=== PATIENT | female | born 1950 | race Caucasian/White ===

== ENCOUNTER → 2016-05-02 | Outpatient (CLI) | payer OTHER ==
[~2016-05-02] VITALS: Ht 175.3 cm; Wt 77.1 kg
[~2016-05-02] MED LIST: ACET500T33 PO; HYDR-2666 PO; PANT40TA5 PO; RANI150C PO; VALS160T3 PO
[2016-05-02 13:17] VITALS: BP 144/87
--- NOTE | 2016-05-04 10:17 | PATHOLOGY ---
PATHOLOGY REPORT * * * * * * * * FINAL DIAGNOSIS: Breast tissue, right breast core biopsy: - INVASIVE DUCTAL CARCINOMA, INTERMEDIATE TO HIGH-GRADE. SEE COMMENT. COMMENT: Sections of the right breast mass core biopsy reveal an invasive ductal carcinoma with associated dense stromal sclerosis. A portion of the tumor shows crush artifact of nuclei. The tumor shows little to no tubule formation, moderate nuclear pleomorphism, and occasional mitotic figures. There are no tumor associated calcifications. There is no lymphovascular tumor invasion. The case is also examined by Dr. Oviedo, who concurs with the diagnosis. (JPM:mgr; d/t: 05/03/16) PROCEDURE REPORT (Order Date: 05/05/2016 00:00) INTERPRETATION: Quantitative image analysis was performed on block A1. Please see next page for scanned image of results. COMMENT: PATHOLOGIST: Irene Oviedo M.D. REPORT ELECTRONICALLY SIGNED BY: Irene Oviedo M.D. DATE/TIME: 05/09/2016 15:35 REPORT ELECTRONICALLY SIGNED BY: Geoff Clark M.D. DATE/TIME: 05/04/2016 10:16 * * * * * * * * GROSS PATHOLOGY: Received in formalin labeled "Tamy Chang right breast," are multiple needle cores of yellow-vera fibrofatty tissue measuring 1.2 x 0.3 x 0.1 cm in aggregate dimensions. The tissue is submitted in its entirety in cassette A1. The cold ischemic time is 5 minutes. The total formalin fixation time is 8 hours and 6 minutes. (CAA; 05/02/2016) INITIAL CPT CODE(S): A; 34246, 09759(4) Professional services performed by [facility] at [address] [address] Technical services performed by [email or web address] at [address] [place] [address] [address] [address]. SPECIMEN(S) RECEIVED: A.Right breast mass CLINICAL HISTORY: Right breast mass PATIENT: TAMY CHANG /AGE: 1203/01/1950 (Age: 66) PATIENT #: [id number] ALT CASE #: SPECIMEN COLLECTION DATE: 05/02/2016 SPECIMEN RECEIVED DATE: 05/02/2016 [facility] - [id number] [address] - PHONE: [phone] * * * END OF REPORT * * *
--- NOTE | 2016-05-13 10:05 | RAD ---
Ultrasound-guided vacuum-assisted right breast biopsy, 05/02/2016: History: Breast mass Previous studies demonstrated an ill-defined hypoechoic mass at the 5-6:00 location. Under local anesthesia, aseptic conditions and sonographic guidance the NewGoTos biopsy instrument was passed into this lesion via a medial approach. Multiple vacuum-assisted core samples were obtained and sent to pathology for evaluation. The number of cores was unexpectedly small, apparently due to the extreme density of this lesion. A biopsy marker was deposited at the biopsy site. The biopsy instrument was then removed and hemostasis obtained. Two-view postprocedural mammograms were then obtained which demonstrated the biopsy marker within the targeted mass. The patient tolerated the procedure well and left the department in good condition. The subsequent pathology report indicated the presence of invasive ductal carcinoma. Note: The findings were called to Dr. Worthy's office at 10:00 AM on 05/13/2016.
== END | disposition home or self-care (01) ==
LOC: US 12:14
PROVIDERS: ATTEND Surgery
DX: N63 Unspecified lump in breast (principal)
CPT/HCPCS: 19081; 76942; C1713; G0206; 88305; 88361; 77065

== ENCOUNTER 2016-05-16 08:11 | Inpatient (IN) | payer OTHER ==
[2016-05-16] VITALS (10 sets, daily range): BP systolic 129–155; BP diastolic 66–85
[~2016-05-16] VITALS: Ht 175.3 cm; Wt 80.7 kg
[~2016-05-16 08:11] MED LIST changes: +FENTANYL PF 100 MCG/2 ML VIAL. IV PRN; -HYDR-2666 PO; +HYDROMORPHONE 2 MG/ML VIAL. IV PRN; +LIDOCAINE 1% 1 ML SYRINGE. ID PRN; +ONDANSETRON PF 4 MG/2 ML VIAL. IV PRN; +PROCHLORPERAZINE 10 MG/2 ML VIAL. IV PRN
[2016-05-16] MEDS ORDERED: MIDAZOLAM HCL 2 MG/2 ML VIAL. ONE (08:45)
[2016-05-16] MEDS ORDERED: LIDOCAINE 2% 100 MG/5 ML DISP.SYRIN. ONE (08:45)
[2016-05-16] MEDS ORDERED: ONDANSETRON PF 4 MG/2 ML VIAL. ONE (08:45)
[2016-05-16] MEDS ORDERED: DEXAMETHASONE SOD PHOS 20 MG/5 ML VIAL. ONE (08:45)
[2016-05-16] MEDS ORDERED: FENTANYL PF 100 MCG/2 ML VIAL. ONE ×2 (08:45→11:22)
[2016-05-16] MEDS ORDERED: PROPOFOL 20 ML IV ONE (08:45)
[2016-05-16] MEDS ORDERED: LIDOCAINE 1% / SOD BICARB 8.4% 20 ML VIAL. IJ ONE (09:00)
[2016-05-16] MEDS: IV RINGERS,LACTATED 1000ML 1,000 ML IV SCH ×2 (09:05→12:41)
[2016-05-16 09:14] LABS: ALBUMIN 3.6 g/dL (3.4-5.0); CALCIUM 9.1 mg/dL (8.5-10.1); CREATININE 0.9 mg/dL (0.6-1.0); GFR 62.8; POTASSIUM 3.9 mmol/L (3.5-5.1)
[2016-05-16 09:27] LABS: BASO # 0.1 x10^3/uL (0.0-0.2); BASO % 1 % (0-3); EOS % 3 % (0-3); HEMATOCRIT 40.4 % (36.0-47.0); HEMOGLOBIN 13.4 g/dL (12.0-15.5); LYMPH # 1.7 x10^3/uL (1.0-4.8); LYMPH % 13 % (24-48); MEAN CORPUSCULAR HEMOGLOBIN 28 pg (25-35); MEAN CORPUSCULAR HGB CONC 33 g/dL (31-37); MEAN CORPUSCULAR VOLUME 84 fL (79-100); MONO % 5 % (0-9); NEUT % 79 % (31-73); PLATELET COUNT 437 x10^3/uL (140-400); RED BLOOD COUNT 4.81 x10^6/uL (3.50-5.40); RED CELL DISTRIBUTION WIDTH 14.9 % (11.5-14.5); WHITE BLOOD COUNT 13.5 x10^3/uL (4.0-11.0)
[2016-05-16] MEDS ORDERED: CEFAZOLIN 2GM PREMIX 50 ML IV ONE ×3 (09:36→11:00)
[2016-05-16] MEDS ORDERED: ISOSULFAN BLUE 50 MG/5 ML VIAL. SQ ONE (10:32)
[2016-05-16] MEDS ORDERED: BUPIVAC MPF-EPI 0.5%-1:200000 30 ML VIAL. ONE (10:32)
[2016-05-16] MEDS ORDERED: PHENYLEPHRINE in 0.9% NACL PF 1 MG/10 ML DISP.SYRIN. IV ONE (11:20)
[2016-05-16] MEDS ORDERED: SEVOFLURANE 61 TO 120 MINUTES. IH ONE ×2 (11:20→12:05)
[2016-05-16] MEDS ORDERED: EPHEDRINE PF IN SALINE 50 MG/5 ML DISP.SYRIN. IV ONE (11:43)
[2016-05-16] MEDS ORDERED: KETOROLAC 60 MG/2 ML SYRINGE FOR OR. ONE (12:06)
[2016-05-16] MEDS: FENTANYL PF 100 MCG/2 ML VIAL. IV PRN ×2 (12:34→12:42)
--- NOTE | 2016-05-16 12:42 | RAD ---
Indication: Right breast cancer. Preoperative Wittmann node injection. Technique: The procedure was discussed with the patient and all questions answered. Written consent was obtained. Timeout procedure was performed. Patient was prepped and draped in the usual manner. 4 periareolar injections were performed. Patient was transferred back to the operative suite prior to any imaging performed. 1 mCi technetium 99m labeled sulfur colloid was utilized for this exam. Impression: Lymphoscintigraphy performed without complication.
[2016-05-16] MEDS ORDERED: DIPHENHYDRAMINE HCL 25 MG CAPSULE PO PRN (12:45)
[2016-05-16] MEDS ORDERED: OXYCODONE/APAP 5/325 TABLET. PO PRN (12:45)
[2016-05-16] MEDS: ENOXAPARIN 40 MG/0.4 ML DISP.SYRIN. SQ SCH (12:45)
[2016-05-16] MEDS ORDERED: DIPHENHYDRAMINE 50 MG/ML VIAL IV PRN (12:45)
[2016-05-16] MEDS ORDERED: ONDANSETRON PF 4 MG/2 ML VIAL. IV PRN (12:45)
[2016-05-16] MEDS ORDERED: 0.9 % SODIUM CHLORIDE 10 ML DISP.SYRIN. IV PRN (12:45)
--- NOTE | 2016-05-16 12:51 | PDOC ---
BRIEF OPERATIVE NOTE Date: May 16, 2016 Pre-Op Diagnosis biopsy proven invasive carcinoma, right breast Post-Op Diagnosis same Procedure Performed SLN biopsy, right modified radical mastectomy Surgeon Deacon Anesthesia Type: General Blood Loss 20cc IV Fluid 1100 Specimens Obtained right SLNs times two, right breast, axillary contents Findings positive SLN Complications none Additional Remarks Wk # [id number] FARRAH COOPER MD May 16, 2016 12:51
[2016-05-16] MEDS: MORPHINE SULFATE 2 MG/ML DISP.SYRIN. IV PRN ×2 (13:21→13:28)
--- NOTE | 2016-05-16 13:36 | OP ---
DATE OF SURGERY: 05/16/2016 PREOPERATIVE DIAGNOSIS: Biopsy proven invasive carcinoma, right breast. POSTOPERATIVE DIAGNOSIS: Biopsy proven invasive carcinoma, right breast. PROCEDURE: 1. Right sentinel lymph node biopsy x 2. 2. Right modified radical mastectomy. SURGEON: Farrah Cooper M.D. ANESTHESIA: General. BLOOD LOSS: 20. INTRAVENOUS FLUID: 1100. INDICATIONS: The patient is a 66-year-old with biopsy proven invasive carcinoma of the right breast, brought for mastectomy, sentinel node sampling, possible axillary dissection. OPERATIVE REPORT: The patient went to the nuclear medicine suite where she underwent injection of the quadrant containing the primary tumor. She is brought to the OR, given a general LMA and the right breast, chest and arm were prepped and draped in usual sterile fashion. A 5 mL of Lymphazurin was injected intradermally, circumareolarly in the quadrant, which containing the tumor. Gentle breast massage for 5 minutes was carried out. An elliptical incision to include the nipple areolar complex was outlined with a marking pen. The superior skin flap was incised and developed with cautery dissection down to the axilla. Using the C-Trak probe for guidance along with blue staining from the Lymphazurin. We identified a sentinel node and it was sent to pathology. A second area of high activity was identified and harvested a hot blue node. While awaiting those results, we swept the breast off the chest wall after making the inferior skin flap. The breast was removed en bloc with a stitch placed at 3 o'clock. Intraoperative report showed a positive lymph node in the second specimen and as such, we completed the axillary dissection. Axillary vein was identified and the axillary contents inferior to the vein were swept out en bloc taking care to identify and preserve the long thoracic nerve and the thoracodorsal neurovascular bundle. When a correct sponge count was obtained, two 19-Lao round Rajan drains were placed. The medial drain under the superior skin flap, the lateral drain in the axilla. Each was secured with a silk stitch. When a second sponge count was correct and good hemostasis was present, the wound was closed with interrupted inverted 3-0 Vicryl in the subcutaneous tissue. A subcuticular 4-0 Monocryl with Steri-Strips used for the skin. Sterile dressing applied. The patient awakened from her anesthetic and taken to the recovery room in satisfactory condition. FARRAH COOPER MD DR: Sandra JOB#: [id number] / [id number]
[2016-05-16] MEDS: HYDROMORPHONE 2 MG/ML VIAL. IV PRN ×2 (14:19→20:12)
[2016-05-16] MEDS: POTASSIUM CL 20MEQ-0.45% NACL 1,000 ML IV SCH (14:20)
[2016-05-16] MEDS: LOSARTAN POTASSIUM 50 MG TABLET. PO SCH (14:20)
[2016-05-16] MEDS: OXYCODONE/APAP 5/325 TABLET. PO PRN ×2 (16:12→20:11)
[2016-05-16] MEDS: DOCUSATE SODIUM 100 MG CAPSULE PO SCH (20:11)
[2016-05-17] MEDS: POTASSIUM CL 20MEQ-0.45% NACL 1,000 ML IV SCH ×2 (01:43→12:19)
[2016-05-17] MEDS: OXYCODONE/APAP 5/325 TABLET. PO PRN (01:44)
[2016-05-17 03:12] VITALS: BP 128/69
[2016-05-17 07:00] VITALS: BP 144/75
[2016-05-17] MEDS: DOCUSATE SODIUM 100 MG CAPSULE PO SCH (08:54)
[2016-05-17] MEDS: ENOXAPARIN 40 MG/0.4 ML DISP.SYRIN. SQ SCH (08:54)
[2016-05-17] MEDS: LOSARTAN POTASSIUM 50 MG TABLET. PO SCH (08:56)
[2016-05-17] MEDS: HYDROMORPHONE 2 MG/ML VIAL. IV PRN (08:57)
[2016-05-17] MEDS ORDERED: PANTOPRAZOLE 40 MG TABLET. PO SCH (09:00)
[2016-05-17 11:00] VITALS: BP 125/69
--- NOTE | 2016-05-17 11:56 | PDOC ---
JASIEL SINGH MEDIA MONITOR 05/17/16 1156: SURGICAL PROGRESS NOTE Subjective percocet was harsh on her stomach otherwise tolerating diet ambulating urinating Vital Signs Vital Signs Date Time Temp Pulse Resp B/P Pulse Ox O2 Delivery O2 Flow Rate FiO2 05/17/16 11:00 97.7 66 16 125/69 96 Nasal Cannula 2.0 97.7 I&O Intake and Output 05/17/16 07:00 Intake Total 1500 ml Output Total 295 ml Balance 1205 ml Intake Oral 150 ml IV Total 1350 ml Output Emesis 100 ml Drainage Total 175 ml Estimated Blood Loss 20 ml # Voids 1 General: Alert, Oriented X3, Cooperative, No acute distress Skin: Other (dressing dry, JPs serosang ) Labs Laboratory Tests Test 05/16/16 08:50 White Blood Count 13.5x10^3/uL (4.0-11.0) Red Blood Count 4.81x10^6/uL (3.50-5.40) Hemoglobin 13.4g/dL (12.0-15.5) Hematocrit 40.4% (36.0-47.0) Mean Corpuscular Volume 84fL (79-100) Mean Corpuscular Hemoglobin 28pg (25-35) Mean Corpuscular Hemoglobin Concent 33g/dL (31-37) Red Cell Distribution Width 14.9% (11.5-14.5) Platelet Count 437x10^3/uL (140-400) Neutrophils (%) (Auto) 79% (31-73) Lymphocytes (%) (Auto) 13% (24-48) Monocytes (%) (Auto) 5% (0-9) Eosinophils (%) (Auto) 3% (0-3) Basophils (%) (Auto) 1% (0-3) Neutrophils # (Auto) 10.7x10^3uL (1.8-7.7) Lymphocytes # (Auto) 1.7x10^3/uL (1.0-4.8) Monocytes # (Auto) 0.7x10^3/uL (0.0-1.1) Eosinophils # (Auto) 0.4x10^3/uL (0.0-0.7) Basophils # (Auto) 0.1x10^3/uL (0.0-0.2) Sodium Level 142mmol/L (136-145) Potassium Level 3.9mmol/L (3.5-5.1) Chloride Level 104mmol/L (98-107) Carbon Dioxide Level 28mmol/L (21-32) Anion Gap 10 (6-14) Blood Urea Nitrogen 19mg/dL (7-20) Creatinine 0.9mg/dL (0.6-1.0) Estimated GFR (Cockcroft-Gault) 62.8 Glucose Level 112mg/dL (70-99) Calcium Level 9.1mg/dL (8.5-10.1) Albumin 3.6g/dL (3.4-5.0) Problem List Problems Medical Problems: (1) Invasive ductal carcinoma of right breast in female Status: Acute Assessment/Plan s/p right mastectomy plan home changed to norco drain teaching FU on Monday with Dr Cooper Problems: FARRAH COOPER MD 05/17/16 1303: SURGICAL PROGRESS NOTE Assessment/Plan pt seen and examined will see in [facility] clinic Problems: JASIEL SINGH APRN May 17, 2016 11:56 FARRAH COOPER MD May 17, 2016 13:03
[2016-05-17] MEDS ORDERED: HYDR-2666 PO (11:59)
[2016-05-17] MEDS ORDERED: HYDROCODONE/APAP 5/325MG TABLET. PO PRN (12:00)
--- NOTE | 2016-05-17 13:05 | PDOC3 ---
Discharge Summary* Date of Admission: May 16, 2016 Date of Discharge: May 17, 2016 Admitting Diagnosis Problems Medical Problems: (1) Invasive ductal carcinoma of right breast in female Status: Acute Final Diagnosis Problems Medical Problems: (1) Invasive ductal carcinoma of right breast in female Status: Acute Procedures right modified radical mastectomy, SLN biopsy Brief Hospital Course Ms. Arias is a 66 old female who presented with biopsy proven invasive carcinoma, right breast. She underwent a right MRM and went home POD 1 Disposition/Orders: D/C to Home CONDITION AT DISCHARGE: Stable Diet: Regular Scheduled Pantoprazole Sodium (Pantoprazole Sodium) 1 TAB PO DAILY (Reported) Ranitidine Hcl (Ranitidine Hcl) 150 MG PO DAILY (Reported) Valsartan (Diovan) 160 MG PO DAILY (Reported) Scheduled PRN Acetaminophen (Tylenol Extra Strength) 500 MG PO PRN PRN PRN HEADACHE (Reported ) FOLLOW UP APPOINTMENT: in the office Time Spent Total time spent with patient 10 minutes for coordination of care, counseling, and education. FARRAH COOPER MD May 17, 2016 13:05
--- NOTE | 2016-05-19 16:52 | PATHOLOGY ---
PATHOLOGY REPORT * * * * * * * * FINAL DIAGNOSIS: A. Lymph node, right sentinel lymph node: - Negative for tumor (0/1). B. Lymph node, sentinel lymph node #2, hot and blue: - METASTATIC CARCINOMA (1/1). C. Lymph node, sentinel lymph node #3, hot: - Negative for tumor (0/1). D. Fibroadipose tissue, chest wall: - No lymph node identified. E. Breast tissue, right simple mastectomy: - INVASIVE DUCTAL CARCINOMA, HIGH GRADE, FORMING TUMOR MASS WITHIN THE LOWER INNER QUADRANT MEASURING UP TO 3.4 CM IN GREATEST DIMENSION. TUMOR IS APPROXIMATELY 1.3 CM FROM THE CLOSEST (INFERIOR) MARGIN OF RESECTION. SEE COMMENT. - Deep resection margin negative for tumor. - No tumor lymphovascular invasion identified. - Intraductal papilloma and focal florid ductal epithelial hyperplasia. F. Lymph nodes and adipose tissue, right axillary contents: - Six lymph nodes showing partial fatty replacement, negative for tumor (0/6). Clinical History: Palpable mass Radiologic Finding: Mass or architectural distortion Procedure: Total mastectomy (including nipple and skin) Lymph Node Sampling: [place] lymph node(s) Axillary dissection (partial or complete dissection) Specimen Laterality: Right Tumor Site of Invasive Carcinoma: Lower inner quadrant Presence of Invasive Carcinoma: Invasive ductal carcinoma (no special type or not otherwise specified) Histologic Grade: Tubule formation: Score 3: <10% of tumor area forming glandular/tubular structures Nuclear pleomorphism: Score 3: Vesicular nuclei, often with prominent nucleoli, exhibiting marked variation in size and shape, occasionally with very large and bizarre forms Mitotic Rate: Score 2 (4-7 mitoses per mm2) [place] Histologic Score-Grade III: 8-9 points Ductal Carcinoma In Situ: DCIS is present Negative for extensive intraductal component (EIC) DCIS Architectural Patterns: Solid DCIS Nuclear Grade: Grade III (high) DCIS Necrosis: Not identified: . Lobular Carcinoma In Situ (LCIS): Not identified: . Tumor Size: Size of Largest Invasive Carcinoma: Greatest dimension of largest focus of invasion > 1 mm Greatest dimension: 34 mm Skin: Invasive carcinoma does not invade into the dermis or epidermis Satellite foci not identified: . DCIS does not involve the nipple epidermis No skeletal muscle present Invasive Carcinoma Margins: Margins uninvolved by invasive carcinoma. Distance from closest margin: 13 mm Closest Uninvolved Margin-Inferior DCIS Margins: Margins uninvolved by DCIS (DCIS present) Lymph-Vascular Invasion: Not identified: . Dermal Lymph-Vascular Invasion: Not identified: . Microcalcifications: Not identified: . Treatment Effect: No known presurgical therapy Lymph Nodes: Total number of nodes examined (sentinel and nonsentinel): 9 Micro / Macro Metastases present Number of lymph nodes with macrometastases (>2 mm): 1 Extranodal extension not identified: . Number of [place] Lymph Nodes examined: 3 Method of Evaluation of [place] Lymph Nodes: Hematoxylin and eosin (H-E), 1 level Method of Evaluation of [place] Lymph Nodes: Immunohistochemistry Estrogen Receptor: Performed on another specimen, number: [id number] Results from other specimen: 79.5% Progesterone Receptor: Performed on another specimen, number: [id number] Results from other specimen: 83.7% HER2 Immunoperoxidase Results: Performed on another specimen, number: [id number] Results from other specimen: 1+ In Situ Hybridization (FISH or CISH) for HER2 Results: Not performed: . Other Ancillary Studies: Performed on another specimen Specimen (accession number): [id number] Name of test: Ki67 Results: 20.6% TNM Descriptor(s): Primary Tumor (Invasive Carcinoma) (pT): pT2: Tumor >20 mm but <= 50 mm in greatest dimension Category (pN): pN1a: Metastases in 1 to 3 axillary lymph nodes, at least 1 metastasis greater than 2.0 mm Additional Pathologic Findings: See diagnoses. COMMENT: There are a total of three sentinel lymph nodes. [place] lymph node #2 shows metastatic carcinoma. Immunoperoxidase stains for AE1/AE3 are obtained on sentinel lymph node #1 and sentinel lymph node #3 and yield the following results: AE1/AE3 (A1): negative for tumor AE1/AE3 (C1): negative for tumor There are six additional lymph nodes identified in the right axillary contents, all of which are negative for tumor. Thus, there is metastatic carcinoma involving one of the nine axillary lymph nodes. Sections of the right simple mastectomy reveal an invasive high grade ductal carcinoma within the lower inner quadrant, measuring up to 3.4 cm in greatest dimension. The margins of resection are negative for tumor. There is no lymphovascular tumor invasion. (JPM:rosas; d/t: 05/18/2016 Immunoperoxidase stains performed: AE1/AE3 (A1 and C1) REPORT ELECTRONICALLY SIGNED BY: Geoff Clark M.D. DATE/TIME: 05/19/2016 16:51 * * * * * * * * GROSS PATHOLOGY: A. The specimen is received fresh for intraoperative consultation and is designated "right sentinel node." This consists of a segment of yellow fatty tissue measuring up to 2.8 cm in greatest dimension. This contains an eccentric pink-mai lymph node measuring approximately 2.0 cm in greatest dimension. Sectioning reveals a mai lymph node showing partial fatty replacement. There is no gross evidence of tumor replacement. This is submitted for frozen section as FSA1. The tissue remaining from frozen section is submitted for permanent sections as A1. B. The specimen is received fresh for intraoperative consultation and is designated "sentinel node #2 hot and blue." This consists of a segment of yellow-red fatty appearing tissue showing focal bluish discoloration, measuring up to 2.9 cm in greatest dimension. Sectioning reveals a mai lymph node showing partial fatty replacement and showing focal bluish discoloration, measuring up 2.5 cm in greatest dimension. This shows no gross evidence of tumor replacement. This is submitted for frozen section as FSB1. The tissue remaining from frozen section is submitted for permanent sections as B1. C. The specimen is received fresh for intraoperative consultation and is designated "sentinel node #3 hot." This consists of a segment of yellow-red fatty tissue measuring up to 2.0 cm in greatest dimension. Sectioning reveals a pink-mai lymph node of similar size showing partial fatty replacement. There is no gross evidence of tumor replacement. This is submitted for frozen section as FSC1. The tissue remaining from frozen section is submitted for permanent sections as C1. (JPM:mgr:rosas; d/t: 05/16/16) D. The specimen is received in formalin labeled "Sarika Juana, chest wall lymph node". Received is a segment of yellow-mai lobulated tissue measuring 0.8 x 0.5 x 0.2 cm in greatest dimensions. Dissection and palpation of the specimen reveals no readily identifiable lymph node. The cut surfaces are yellow-mai in appearance. The specimen is submitted entirely in cassette D1. (CAA; 05/16/2016) E. The specimen is received in formalin labeled "Sarika Chang, right breast, suture at 3:00". Received is a 1180 g mastectomy specimen with a suture designating the 3:00 (medial) aspect. The specimen measures 23.2 cm from medial to lateral, 21.1 cm from superior to inferior, and 6.8 cm from anterior to posterior. The anterior aspect of the specimen displays an attached ellipse of skin measuring 21.6 x 13.9 cm with a centrally located everted nipple and areola complex, measuring 1.1 x 0.9 x 0.9 and 4.2 x 4.2 cm, respectively. Within the areola complex, there are multiple pale mai, irregular in contour, flaky lesions ranging in size from 0.2 x 0.2 to 0.5 x 0.5 cm. The specimen is inked as follows: Superior/anterior-blue, inferior/anterior-green, posterior-black. Sectioning reveals a previous biopsy site, with a metallic clip present, measuring 0.9 x 0.4 x 0.3 cm in greatest dimensions, which is 1.7 cm from the closest margin (inferior). The previous biopsy site is surrounded by white-mai, firm tumor measuring 3.4 x 2.7 x 1.6 cm, which is 1.3 cm from the closest margin (inferior). The previous biopsy site and mass are located in the lower inner quadrant. The remainder the specimen is comprised of yellow-mai fibrofatty breast tissue with no additional nodules or lesions noted grossly. The specimen is submitted representatively as follows: E1 perpendicular section through nipple E2-E6 entire previous biopsy site with surrounding mass E7 upper outer quadrant E8 lower outer quadrant E9 lower inner quadrant E10 upper inner quadrant. The cold ischemic time and time in formalin are not provided. The time out of formalin is 9:51 PM on 05/17/2016. (CAA:JPM:csd; 05/17/2016) F. The specimen is received in formalin labeled "Sarika Chang, right axillary contents". Received are multiple segments of yellow-mai lobulated tissue measuring 8.4 x 7.8 x 3.2 cm in aggregate dimensions. Palpation and dissection of the specimen reveals 6 readily identifiable lymph nodes ranging in size from 0.5 to 3.1 cm in maximum dimensions. The lymph nodes are submitted as follows: F1 two intact lymph nodes F2 one bisected lymph node F3-F4 one quadrisected lymph node F5-F7 one trisected lymph node F8-F11 one quadrisected lymph node. (CAA:JPM:rosas; 05/16/2016) FROZEN SECTION DIAGNOSIS: (Roldan Clark M.D.) FSA1. Right sentinel lymph node: - Negative for tumor. The results are reported to Dr. Worthy in the operating room. FSB1. [place] lymph node #2 hot and blue: - METASTATIC CARCINOMA. The results are reported to Dr. Worthy in the operating room. FSC1. [place] lymph node #3 hot: - Negative for tumor. The results are reported to Dr. Worthy in the operating room. (JPM:mgvannessa; d/t: 05/16/16) Testing performed by [facility] [address] INITIAL CPT CODE(S): 82198(4), 57827 A; 16309, 32657 B; 76108 C; 53459, 03910 Professional services performed by [facility] [place] [address] Technical services performed by [facility] at [address] [place] [address], [address], [place] [address]. SPECIMEN(S) RECEIVED: A.Right sentinel lymph node B.[place] lymph node #2, hot and blue C.[place] lymph node #3, hot D.Chest wall lymph node E.Right breast F.Right axillary contents CLINICAL HISTORY: Invasive ductal ca PATIENT: SARIKA CHANG /AGE: 1203/01/1950 (Age: 66) PATIENT #: [id number] ALT CASE #: SPECIMEN COLLECTION DATE: 05/16/2016 SPECIMEN RECEIVED DATE: 05/16/2016 [facility] - [id number] [place] [address] - PHONE: [phone] * * * END OF REPORT * * *
== END 2016-05-17 15:35 | disposition home or self-care (01) | DRG 581 ==
LOC: SURHIP 08:11 → 4 NORTH 13:30
PROVIDERS: ADMIT Surgery; ATTEND Surgery
PROC: 0HTT0ZZ Resection of Right Breast, Open Approach (ICD-10-PCS; principal; 2016-05-16 09:45)
PROC: 07B50ZX Excision of Right Axillary Lymphatic, Open Approach, Diagnostic (ICD-10-PCS; 2016-05-16 09:45)
DX: C50.911 Malignant neoplasm of unspecified site of right female breast (principal)
CPT/HCPCS: 36415; 38792; 80048; 82040; 85027; 96374; A9541; C1769; J0690; J1100; J1170; J1650; J1885; J2250; J2270; J2370; J2405; J2704; J3010; J3490; J7120; Q9968

== ENCOUNTER → 2016-08-09 | Outpatient (CLI) | payer OTHER ==
[~2016-08-09] MED LIST changes: -FENTANYL PF 100 MCG/2 ML VIAL. IV PRN; +HYDR-2666 PO; -HYDROMORPHONE 2 MG/ML VIAL. IV PRN; -LIDOCAINE 1% 1 ML SYRINGE. ID PRN; -ONDANSETRON PF 4 MG/2 ML VIAL. IV PRN; -PROCHLORPERAZINE 10 MG/2 ML VIAL. IV PRN
--- NOTE | 2016-08-09 12:26 | RAD ---
Indication left arm swelling. Grayscale color Doppler and spectral imaging was performed. Examination was targeted to the veins of the left upper extremity. Preliminary report was provided by the technologist performing the examination to a nurse associated with Dr. Marshall. Additionally the patient was going back to the physician's office following this study There is nonocclusive thrombus seen in the left internal jugular vein. The subclavian and axillary veins are patent. The basilic vein is unremarkable showing no evidence of thrombus. The brachial vein is also unremarkable. Visualized radial and ulnar veins are normal and the cephalic vein appears unremarkable. The right internal jugular vein was also scanned and appears normal. IMPRESSION: Nonocclusive thrombus in the left internal jugular vein..
== END | disposition home or self-care (01) ==
LOC: US 11:27
PROVIDERS: ATTEND Internal Medicine Hematology & Oncology
DX: C50.311 Malignant neoplasm of lower-inner quadrant of right female breast (principal); M79.89 Other specified soft tissue disorders; I82.C12 Acute embolism and thrombosis of left internal jugular vein
CPT/HCPCS: 93971

== ENCOUNTER → 2016-11-03 | Outpatient (CLI) | payer OTHER ==
[~2016-11-03] MED LIST changes: -HYDR-2666 PO; +HYDR-2758 PO
--- NOTE | 2016-11-03 11:00 | KCIC ---
History: Postmenopausal screening, malignant neoplasm of the breast. White female. Comparison: None. Findings: Bone Densitometry was performed with dual photon absorption of the lumbar spine and left hip. Lumbar Spine: Bone density is 0.895 g/cm2 for L1-L4. T-Score is -1.4. Z-score is 0.4. Left hip: Bone density is 0.748 g/cm2. T-Score is -1.6. Z-score is -0.3. IMPRESSION: Osteopenia of the lumbar spine and left hip. World Health definition of osteoporosis and osteopenia: Normal = T-Score at or above -1.0; osteopenia = T-score between -1.0 and -2.5; osteoporosis = T-score at or below -2.5 Electronically signed by: Jordan Cadet MD (11/03/2016 10:57 AM) [id number]
== END | disposition home or self-care (01) ==
LOC: KCIC DEXA 09:32
PROVIDERS: ATTEND Internal Medicine Hematology & Oncology
DX: M85.89 Other specified disorders of bone density and structure, multiple sites (principal); Z78.0 Asymptomatic menopausal state
CPT/HCPCS: 77080

== ENCOUNTER 2018-12-27 06:48 | Observation (INO) | payer OTHER ==
[~2018-12-27] VITALS: Ht 175.3 cm; Wt 92.1 kg
[2018-12-27] VITALS (12 sets, daily range): BP systolic 122–152; BP diastolic 72–95
[~2018-12-27 06:48] MED LIST changes: +ANAS1TAB PO; +BUPIVACAINE-EPI 0.5%-1:200000 MPF 30 ML VIAL. INJ ONE; +CALC-495 PO; -HYDR-2758 PO; +HYDR-2761 PO; +LISI-334 PO; -PANT40TA5 PO; +PANT40TA77 PO
[2018-12-27] MEDS ORDERED: MORPHINE SULFATE 2 MG/ML VIAL. IV PRN (07:00)
[2018-12-27] MEDS ORDERED: PROCHLORPERAZINE 10 MG/2 ML VIAL. IV PRN (07:00)
[2018-12-27] MEDS ORDERED: ONDANSETRON PF 4 MG/2 ML VIAL. IV PRN ×2 (07:00→09:30)
[2018-12-27] MEDS ORDERED: fentaNYL PF VIAL 100 MCG/2 ML VIAL IV PRN (07:00)
[2018-12-27] MEDS ORDERED: HYDROmorphone 2 MG/ML VIAL IV PRN ×2 (07:00→09:30)
[2018-12-27] MEDS ORDERED: IV RINGERS,LACTATED 1000ML 1,000 ML IV SCH (07:00)
[2018-12-27] MEDS ORDERED: LIDOCAINE 2% TOPICAL JELLY 5GM TUBE. TP ONE (07:52)
[2018-12-27] MEDS ORDERED: PROPOFOL 20 ML IV ONE (07:52)
[2018-12-27] MEDS ORDERED: LIDOCAINE 2% PF 5 ML VIAL. ONE (07:52)
[2018-12-27] MEDS ORDERED: DEXAMETHASONE SOD PHOS 4 MG/ML VIAL ONE (07:52)
[2018-12-27] MEDS ORDERED: FAMOTIDINE 20 MG/2 ML VIAL ONE (07:52)
[2018-12-27] MEDS ORDERED: ONDANSETRON PF 4 MG/2 ML VIAL. ONE (07:52)
[2018-12-27] MEDS ORDERED: fentaNYL PF VIAL 100 MCG/2 ML VIAL ONE (07:53)
[2018-12-27] MEDS ORDERED: MIDAZOLAM HCL/PF 2 MG/2 ML VIAL. ONE (07:53)
[2018-12-27] MEDS ORDERED: SUCCINYLCHOLINE 200 MG/10 ML VIAL. ONE (07:53)
[2018-12-27] MEDS ORDERED: REMIFENTANIL 2 MG VIAL. IV ONE (07:56)
[2018-12-27] MEDS ORDERED: 0.9 % SODIUM CHLORIDE 20 ML VIAL. IJ ONE (07:57)
[2018-12-27] MEDS ORDERED: ceFAZolin 2GM PREMIX 2 GM/50 ML BAG IV ONE (08:00)
[2018-12-27] MEDS ORDERED: ePHEDrine PF IN SALINE 50 MG/10 ML SYRINGE. IV ONE (08:46)
[2018-12-27] MEDS ORDERED: SEVOFLURANE 31 TO 60 MINUTES. IH ONE (09:26)
[2018-12-27] MEDS: IV NORMAL SALINE 1000ML BAG 1,000 ML IV SCH (09:28)
[2018-12-27] MEDS ORDERED: NALOXONE 0.4 MG/ML VIAL. IV PRN (09:30)
[2018-12-27] MEDS ORDERED: 0.9 % SODIUM CHLORIDE 10 ML DISP.SYRIN. IV PRN (09:30)
[2018-12-27] MEDS ORDERED: oxyCODONE/APAP 5/325 1 TAB TABLET PO PRN (09:30)
--- NOTE | 2018-12-27 09:50 | PDOC ---
BRIEF OPERATIVE NOTE Date: Dec 27, 2018 Pre-Op Diagnosis left thyroid nodule Post-Op Diagnosis same Procedure Performed left hemithyroidectomy with NIMS Surgeon Deacon Carrot Buncher Cassia Vargas Anesthesia Type: General (NIMS) Blood Loss 10cc IV Fluid 400cc Specimens Obtained left thyroid Findings single nodule in lower pole Complications none Operative Note Wk # [id number] FARRAH COOPER MD Dec 27, 2018 09:50
[2018-12-27] MEDS: fentaNYL PF VIAL 100 MCG/2 ML VIAL IV PRN ×2 (10:19→10:50)
[2018-12-27] MEDS: POTASSIUM CL 20MEQ-0.45% NACL 1,000 ML IV SCH (13:07)
--- NOTE | 2018-12-27 14:07 | OP ---
DATE OF SURGERY: 12/27/2018 PREOPERATIVE DIAGNOSIS: Left thyroid nodule. POSTOPERATIVE DIAGNOSIS: Left thyroid nodule. PROCEDURE: Left hemithyroidectomy with NIMS (completion thyroidectomy). SURGEON: Rylan Cooper MD ASSISTANTS: Dr. Castillo and GUIDO Christy ANESTHESIA: General endotracheal with NIMS. ESTIMATED BLOOD LOSS: 10 mL. INTRAVENOUS FLUIDS: 400 mL. INDICATIONS FOR PROCEDURE: The patient is a 68-year-old with a nodule in the remaining thyroid gland on the left side having had the right side of the gland removed in the distant past. DESCRIPTION OF PROCEDURE: The patient was brought to the operating suite and given a general endotracheal anesthetic with NIMS. Neck was placed in extension and prepped and draped in usual sterile fashion. The previous neck incision was opened and skin flaps were developed superiorly and inferiorly with cautery dissection. The midline musculature was reflected laterally off the left lobe and the superior pole vessels were isolated, ligated, and divided. The gland was then rolled toward the midline with careful blunt and cautery dissection avoiding injury to the recurrent laryngeal nerve. The remaining gland and isthmus were freed off the trachea and the specimen was passed off. NIMS probe of the left side recurrent laryngeal nerve found it to be intact. The patient was given 30 cm of water Valsalva. No evidence of bleeding seen. When a correct sponge count was obtained, the midline cervical fascia was approximated with interrupted inverted 3-0 chromic. Neck was taken out of extension and the subcutaneous tissue was approximated with 3-0 Vicryl. Skin was closed with ____ 4-0 Prolene. Sterile dressing was applied. The patient was awakened from her anesthetic and taken to the recovery room in satisfactory condition. RYLAN COOPER MD DR: KEYON/jania JOB#: [id number] / [id number]
[2018-12-27] MEDS ORDERED: METOCLOPRAMIDE HCL 10 MG/2 ML VIAL. IVP PRN (17:30)
[2018-12-27] MEDS ORDERED: ENOXAPARIN 40 MG/0.4 ML SYRINGE. SQ SCH (21:00)
[2018-12-27] MEDS: DOCUSATE SODIUM 100 MG CAPSULE. PO SCH (21:06)
[2018-12-28 03:17] VITALS: BP 138/69
[2018-12-28] MEDS: POTASSIUM CL 20MEQ-0.45% NACL 1,000 ML IV SCH (04:29)
[2018-12-28 07:00] VITALS: BP 146/86
--- NOTE | 2018-12-28 08:27 | PDOC ---
JASIEL SINGH METER TESTER POLYPHASE 12/28/18 0827: SURGICAL PROGRESS NOTE Subjective tolerating diet voice strong minimal pain Vital Signs Vital Signs Date Time Temp Pulse Resp B/P (MAP) Pulse Ox O2 Delivery O2 Flow Rate FiO2 12/28/18 07:00 97.8 66 16 146/86 (106) 95 Room Air 97.8 12/28/18 03:17 2.0 I&O Intake and Output 12/28/18 07:00 Intake Total 3020 ml Output Total 10 ml Balance 3010 ml Intake Oral 790 ml IV Total 1390 ml Other 840 ml Output Estimated Blood Loss 10 ml # Voids 1 General: Alert, Cooperative, No acute distress HEENT: Other (incision c/d/i, no erythema, no swelling) Labs Laboratory Tests Test 12/27/18 11:55 Calcium Level 9.1 mg/dL (8.5-10.1) Laboratory Tests Test 12/27/18 11:55 Calcium Level 9.1 mg/dL (8.5-10.1) Assessment/Plan s/p left hemithyroidectomy stable plan dc home today pain script electronically sent FARRAH COOPER MD 12/28/18 1145: SURGICAL PROGRESS NOTE Assessment/Plan as above home today f/u in [place] office next JASIEL SINGH APRN Dec 28, 2018 08:27 FARRAH COOPER MD Dec 28, 2018 11:45
[2018-12-28] MEDS ORDERED: DOCU100C28 PO (08:40)
[2018-12-28] MEDS ORDERED: OXYC1TAB15 PO (08:40)
[2018-12-28] MEDS ORDERED: LEVO25TA4 PO (08:43)
--- NOTE | 2018-12-28 08:44 | DISCH ---
DISCHARGE INSTRUCTIONS Condition on Discharge Condition on Discharge: Stable Activity After Discharge Activity Instructions for Disc: Activity as tolerated Exercise Instruction after Dis: Progress as tolerated Driving Instructions after Dis: Do not drive Weight Bearing Status after Di: No restrictions, As tolerated Diet after Discharge Diet after Discharge: Regular Wound Incision Care Wound/Incision Care: May get incision wet, No wound care needed Contacting the after DC Call your doctor for: Concerns you may have Follow-Up Follow up with: Dr Worthy 1 week, call to schedule [phone] Treatment/Equipment after DC Adaptive Equipment Issued: None JASIEL SINGH APRN Dec 28, 2018 08:44
[2018-12-28] MEDS: IV NORMAL SALINE 1000ML BAG 1,000 ML IV SCH (09:28)
[2018-12-28] MEDS: DOCUSATE SODIUM 100 MG CAPSULE. PO SCH (09:55)
--- NOTE | 2018-12-28 11:09 | NUR ---
SW following for discharge planning. Chart reviewed, discussed with RN, pt is from home alone, gets around fine. Waiting on surgical consult. SW will continue to follow for any discharge planning needs.
--- NOTE | 2018-12-28 11:46 | PDOC3 ---
Discharge Summary Visit Information Date of Admission: Dec 27, 2018 Date of Discharge: Dec 28, 2018 Admitting Diagnosis Comment: thyroid nodule Final Diagnosis same Brief Hospital Course Allergies Allergies Coded Allergies Type Severity Reaction Last Updated Verified Sulfa (Sulfonamide Antibiotics) Allergy Severe PRURITIS HIVES 12/27/18 Yes Vital Signs Vital Signs Date Time Temp Pulse Resp B/P (MAP) Pulse Ox O2 Delivery O2 Flow Rate FiO2 12/28/18 08:00 Room Air 12/28/18 07:00 97.8 66 16 146/86 (106) 95 97.8 12/28/18 03:17 2.0 Lab Results Laboratory Tests Test 12/27/18 11:55 Calcium Level 9.1 mg/dL (8.5-10.1) Laboratory Tests Test 12/27/18 11:55 Calcium Level 9.1 mg/dL (8.5-10.1) Brief Hospital Course Ms. Arias is a 68 old female who presented with left thyroid nodule for completion thyroidectomy after a left hemithyroidectomy in the distant past Assessment Assessment stable post op Discharge Information Condition at Discharge: Stable Follow Up: As Needed Disposition/Orders: D/C to Home Scheduled Anastrozole (Anastrozole) 1 Mg Tablet, 1 MG PO DAILY for HX BREAST CA, (Reported) Entered as Reported by: BELINDA HUERTA on 12/19/18 1159 Last Taken: Unknown Dose on 12/27/18 0530 Last Action: Last Taken Edited on 12/27/18 0706 by LORENA BRENNER Calcium Carbonate/Vitamin D3 (Calcium 600 + Vit D 800 Tab) 1 Each Tablet, 1 TAB PO DAILY for SUPP for 30 Days, #30 Ref 0 (Reported) Entered as Reported by: BELINDA HUERTA on 12/19/18 1157 Last Taken: Unknown Dose on 12/26/18 Last Action: Last Taken Edited on 12/27/18 0706 by LORENA BRENNER Lisinopril (Lisinopril) 20 Mg Tablet, 20 MG PO DAILY for FOR HYPERTENSION, #30 Ref 0 (Reported) Entered as Reported by: BELINDA HUERTA on 12/19/18 1141 Last Taken: Unknown Dose on 12/26/18 0900 Last Action: Last Taken Edited on 12/27/18 1037 by ELIANE SAHU Scheduled PRN Oxycodone/Apap 5-325 (Percocet 5-325 Mg Tablet ) 1 Each Tablet, 1 TAB PO PRN Q4HRS PRN for MILD PAIN, 1ST CHOICE, #30 Ref 0 Prescribed by: Tereza Odom on 12/28/18 0840 FARRAH COOPER MD Dec 28, 2018 11:46
--- NOTE | 2018-12-28 13:22 | NUR ---
Discharge Note: SARIKA CHANG [address] Discharge instructions and discharge home medications reviewed with Patient and a copy given. All questions have been answered and understanding verbalized. The following instructions and handouts were given: dIET, ACTIVITY, MEDICATION LIST AND FOLLOW UP INSTRUCTIONS PROVIDED TO PATIENT. Discontinued lines and drains: Peripheral IV DISCONTINUED WITH CATHETER intact. Patient discharged to Home or Self Care with Friend via Wheelchair
--- NOTE | 2018-12-31 14:06 | PATHOLOGY ---
[facility] Accession Number: [id number] . 01 Material submitted: . thyroid gland - LEFT THYROID, STITCH SUPERIOR POLE. Modifiers: left . 01 Clinical history: . Thyroid nodule . 02 Diagnosis: Thyroid (left thyroid stitch superior pole): - MULTIPLE FOCI OF PAPILLARY THYROID CARCINOMA; THE LARGEST NODULE MEASURES 1 CM IN GREATEST DIMENSION. - Adenomatoid nodule measuring 2 cm in greatest dimension. - One foci of papillary thyroid carcinoma extending to blue inked anterior surface. - There is no extrathyroidal extension. - See comment. (SHA:mansi; 12/31/2018) . . SURGICAL PATHOLOGY CANCER CASE SUMMARY . Protocol posting date: October 2018 . THYROID GLAND: . Procedure ___ Left lobectomy . Tumor Focality ___ Multifocal . Tumor Site ___ Left lobe . Tumor Size Greatest dimension (centimeters): 1 cm . Histologic Type Papillary Carcinomas ___ Papillary carcinoma, follicular variant, well demarcated, noninvasive# . Margins ___ Involved by carcinoma + Site(s) of involvement: Anterior . Angioinvasion (Vascular Invasion) ___ Not identified . Lymphatic Invasion ___ Not identified . + Perineural Invasion +___ Not identified . + Mitotic Rate: 1 per mm2 . Extrathyroidal Extension ___ Not identified . Regional Lymph Nodes ___ No lymph nodes submitted or found . . Pathologic Stage Classification (pTNM, AJCC 8th Edition) (Note M) . For Papillary, Follicular, Poorly Differentiated, Oncocytic (H rthle cell) Cell, and Anaplastic Thyroid Carcinoma . Primary Tumor (pT) ___ pT1a: Tumor =<1 cm in greatest dimension limited to the thyroid . . Regional Lymph Nodes (pN)# ___ pNX:Regional lymph nodes cannot be assessed . + Additional Pathologic Findings + ___ Adenomatoid nodule(s) or nodular follicular disease (eg, nodular hyperplasia, goitrous thyroid) . + Clinical History + ___ Other (specify): Previous right thyroidectomy, cause unknown. QMS 12/31/2018 1338 Local . 02 Comment: This case is also reviewed by Dr. Shaun Clark. . This case is also discussed with Kristy Griffin at Dr. Rylan Worthy's office on 12/31/2018 at 10:30 a.m. (SHA:[facility]; 12/31/2018) . 02 Electronically signed: . Billy Nice MD, Pathologist NPI- [id number] . 01 Gross description: . The specimen is received in formalin, labeled "Tamy Arias, left thyroid, stitch superior pole". Received is a 14 g thyroid lobe measuring 4.7 x 2.9 x 2.1 cm in greatest dimensions with a suture designating the superior pole. There is an attached possible pyramidal lobe measuring 2.5 x 0.9 x 0.6 cm. The capsule is slightly disrupted in appearance with overlying adhesions. The specimen is inked as follows: Anterior-blue, posterior-black, possible pyramidal lobe-red. Sectioning reveals a large pink-mai nodule, displaying cystic to solid to colloid components, measuring 2.0 cm in maximum dimensions, located in the mid and lower pole. There is a second pink-mai, cystic-appearing nodule measuring 1.2 cm in greatest dimensions, located in the upper to mid pole. There are also four pale mai, solid nodules present, scattered throughout all three poles, ranging in size from 0.4 to 0.5 cm. The remainder of the lobe is comprised of normal red-brown thyroid parenchyma. Sectioning through the possible pyramidal lobe reveals a single pale mai nodule measuring 0.4 cm. The remaining cut surfaces display a light brown to white-mai appearance. The entire thyroid lobe is submitted from superior to inferior aspects in cassettes A1 through A16. The possible pyramidal lobe is bisected and entirely submitted in cassette A17. ([facility]AA; 12/28/2018) QAC/QA 12/31/2018 1046 Local . 02 Pathologist provided ICD-10: C73, E04.1 . 02 CPT . 871962 Specimen Comment: A courtesy copy of this report has been sent to Specimen Comment: [phone], . Specimen Comment: Report sent to / DR BELL Performed at: 01 [facility] [id number] [address], [place] [id number] MD Shaggy Jimenez MD Phone: [phone] Performed at: 02 [facility] [address], [place] [id number] MD Geoff Clark MD Phone: [phone]
== END 2018-12-28 13:24 | disposition home or self-care (01) ==
LOC: SURG 06:48 → INTOOBSV 09:28 → 4 NORTH 09:28
PROVIDERS: ADMIT Surgery; ATTEND Surgery
DX: E04.1 Nontoxic single thyroid nodule (principal)
CPT/HCPCS: 36415; 60220; 82310; 88307; 96372; 96374; 96375; A7015; G0378; G0379; J0171; J0330; J0696; J1100; J1170; J1650; J2001; J2250; J2405; J2704; J2765; J3010; J3490; J7120

== ENCOUNTER 2019-02-25 08:09 | Observation (INO) | payer OTHER ==
[2019-02-25] VITALS (9 sets, daily range): BP systolic 126–155; BP diastolic 78–96
[~2019-02-25] VITALS: Ht 175.3 cm; Wt 77.1 kg
[~2019-02-25 08:09] MED LIST changes: +DOCU100C28 PO; +HYDROmorphone 2 MG/ML VIAL IV PRN; +IV RINGERS,LACTATED 1000ML 1,000 ML IV SCH; +LEVO25TA4 PO; +LIDOCAINE 1% PF 2 ML VIAL. ID PRN; +MORPHINE SULFATE 2 MG/ML VIAL. IV PRN; +ONDANSETRON PF 4 MG/2 ML VIAL. IV PRN; +OXYC1TAB15 PO; +PROCHLORPERAZINE 10 MG/2 ML VIAL. IV PRN; +fentaNYL PF VIAL 100 MCG/2 ML VIAL IV PRN
[2019-02-25] MEDS ORDERED: IV RINGERS,LACTATED 1000ML 1,000 ML IV SCH (08:46)
[2019-02-25] MEDS ORDERED: MORPHINE SULFATE 2 MG/ML VIAL. IV PRN (09:00)
[2019-02-25] MEDS ORDERED: fentaNYL PF VIAL 100 MCG/2 ML VIAL IV PRN ×2 (09:00)
[2019-02-25] MEDS ORDERED: ONDANSETRON PF 4 MG/2 ML VIAL. IV PRN (09:00)
[2019-02-25] MEDS ORDERED: PROCHLORPERAZINE 10 MG/2 ML VIAL. IV PRN (09:00)
[2019-02-25] MEDS ORDERED: HYDROmorphone 2 MG/ML VIAL IV PRN ×2 (09:00→12:00)
[2019-02-25] MEDS ORDERED: SCOPOLAMINE 1.5MG PATCH. TD ONE (09:00)
[2019-02-25] MEDS ORDERED: PROPOFOL 50 ML IV ONE (09:44)
[2019-02-25] MEDS ORDERED: REMIFENTANIL 2 MG VIAL. IV ONE (09:44)
[2019-02-25] MEDS ORDERED: ONDANSETRON PF 4 MG/2 ML VIAL. ONE (09:46)
[2019-02-25] MEDS ORDERED: PROPOFOL 20 ML IV ONE (09:46)
[2019-02-25] MEDS ORDERED: 0.9 % SODIUM CHLORIDE 20 ML VIAL. IJ ONE (09:46)
[2019-02-25] MEDS ORDERED: FAMOTIDINE 20 MG/2 ML VIAL ONE (09:46)
[2019-02-25] MEDS ORDERED: fentaNYL PF VIAL 100 MCG/2 ML VIAL ONE ×2 (09:46→12:20)
[2019-02-25] MEDS ORDERED: LIDOCAINE 2% PF 5 ML VIAL. ONE (09:46)
[2019-02-25] MEDS ORDERED: MIDAZOLAM HCL/PF 2 MG/2 ML VIAL. ONE (09:46)
[2019-02-25] MEDS ORDERED: DEXAMETHASONE SOD PHOS 4 MG/ML VIAL ONE (09:46)
[2019-02-25] MEDS ORDERED: LIDOCAINE 2% TOPICAL JELLY 5GM TUBE. TP ONE (09:48)
[2019-02-25] MEDS ORDERED: ePHEDrine PF IN SALINE 50 MG/10 ML SYRINGE. IV ONE (10:20)
[2019-02-25] MEDS ORDERED: PHENYLEPHRINE in 0.9% NACL PF 1 MG/10 ML SYRINGE. IV ONE (11:20)
[2019-02-25] MEDS ORDERED: SEVOFLURANE 61 TO 120 MINUTES. IH ONE (11:32)
[2019-02-25] MEDS ORDERED: IV NORMAL SALINE 1000ML BAG 1,000 ML IV SCH (11:52)
[2019-02-25] MEDS ORDERED: NALOXONE 0.4 MG/ML VIAL. IV PRN (12:00)
[2019-02-25] MEDS ORDERED: HYDROcodone/APAP 5/325MG 1 TAB TABLET PO PRN (12:00)
[2019-02-25] MEDS ORDERED: diphenhydrAMINE HCL 25 MG CAPSULE PO PRN (12:00)
[2019-02-25] MEDS ORDERED: 0.9 % SODIUM CHLORIDE 10 ML DISP.SYRIN. IV PRN (12:00)
[2019-02-25] MEDS ORDERED: ONDANSETRON PF 4 MG/2 ML VIAL. IVP PRN (12:00)
[2019-02-25] MEDS ORDERED: PHENOL ORAL SPRAY 177ML BOTTLE. PO PRN (12:00)
[2019-02-25] MEDS ORDERED: BENZOCAINE/MENTHOL LOZENGE. PO PRN (12:00)
--- NOTE | 2019-02-25 12:12 | PDOC ---
BRIEF OPERATIVE NOTE Date: Feb 25, 2019 Pre-Op Diagnosis right thyroid nodule Post-Op Diagnosis same Procedure Performed hemithyroidectomy Surgeon Deacon Respite Coordinator Cassia LORA, Sam LORA Anesthesia Type: General (with NIMS) Blood Loss 25cc IV Fluid 1000cc Specimens Obtained right thyroid remnant Findings small residual right thyroid Complications none FARRAH COOPER MD Feb 25, 2019 12:12
[2019-02-25] MEDS: POTASSIUM CL 20MEQ-0.45% NACL 1,000 ML IV SCH (13:00)
[2019-02-25] MEDS: HYDROcodone/APAP 5/325MG 1 TAB TABLET PO PRN ×2 (16:42→21:05)
--- NOTE | 2019-02-25 18:59 | OP ---
DATE OF SURGERY: 02/25/2019 PREOPERATIVE DIAGNOSIS: Right thyroid nodule. POSTOPERATIVE DIAGNOSIS: Right thyroid nodule. PROCEDURE: Right hemithyroidectomy. SURGEON: Rylan Cooper MD OUTSOLE HANDLER: GUIDO Christy and GUIDO Gifford. ANESTHESIA: General endotracheal with NIMS. ESTIMATED BLOOD LOSS: 25 mL. INTRAVENOUS: 1 liter. INDICATIONS: The patient is a 68-year-old with a small residual right thyroid, having had the left side removed for cancer. She is brought for removal. DESCRIPTION OF PROCEDURE: The patient brought to the operating suite, given a general endotracheal anesthetic with NIMS. Neck placed in extension, prepped and draped in usual sterile fashion. A 0.5% Marcaine with epinephrine was infiltrated along the incision line. Incision made and dissection carried down to the cervical fascia. Skin flaps developed superiorly and inferiorly with cautery dissection. Cervical fascia opened in the midline and the strap muscles on the right were reflected laterally to expose the small nubbin of thyroid that remained. Superior pole was isolated, ligated, and divided, taking care to avoid the recurrent laryngeal nerve. The remainder of the gland was mobilized to the midline by taking down lateral attachments with 3-0 Vicryl ties and LigaSure as needed. Specimen passed off. At completion, the recurrent laryngeal nerve had been exposed, was probed and showed normal intact function. Valsalva to 30 cm water was given and no evidence of venous bleeding seen. When a correct sponge count was obtained, the cervical fascia was approximated with interrupted inverted 3-0 chromic. The neck taken out of extension and the subcutaneous tissue approximated with 3-0 Vicryl. Skin closed with a subcuticular 4-0 Prolene. Steri-Strips and sterile dressing applied. The patient awakened from her anesthetic and taken to the recovery room in satisfactory condition. RYLAN COOPER MD DR: KEYON/jania JOB#: [id number] / [id number] JOSE C Lewis
[2019-02-25] MEDS: DOCUSATE SODIUM 100 MG CAPSULE. PO SCH (21:00)
[2019-02-25] MEDS ORDERED: ENOXAPARIN 40 MG/0.4 ML SYRINGE. SQ SCH (21:00)
[2019-02-26] MEDS: POTASSIUM CL 20MEQ-0.45% NACL 1,000 ML IV SCH ×2 (01:50→11:38)
[2019-02-26 03:00] VITALS: BP 110/55
[2019-02-26] MEDS: HYDROcodone/APAP 5/325MG 1 TAB TABLET PO PRN (05:48)
[2019-02-26 07:00] VITALS: BP 142/81
[2019-02-26] MEDS: DOCUSATE SODIUM 100 MG CAPSULE. PO SCH (08:18)
[2019-02-26] MEDS ORDERED: LISINOPRIL 20 MG TABLET PO SCH (09:00)
[2019-02-26] MEDS ORDERED: ANASTROZOLE 1 MG TABLET PO SCH (09:00)
[2019-02-26] MEDS ORDERED: CALCIUM CARB/VIT D3 500/200 TABLET. PO SCH (09:00)
--- NOTE | 2019-02-26 09:10 | PDOC ---
JASIEL SINGH SLINGER SEQUINS 02/26/19 0910: SURGICAL PROGRESS NOTE Subjective tolerating diet voice strong urinating Vital Signs Vital Signs Date Time Temp Pulse Resp B/P (MAP) Pulse Ox O2 Delivery O2 Flow Rate FiO2 02/26/19 08:19 65 142/81 02/26/19 07:13 Room Air 02/26/19 07:00 97.7 18 96 97.7 02/25/19 12:30 2 I&O Intake and Output 02/26/19 07:00 Intake Total 2220 ml Output Total 25 ml Balance 2195 ml Intake Oral 170 ml IV Total 2050 ml Output Estimated Blood Loss 25 ml # Voids 2 General: Alert, Oriented X3, Cooperative HEENT: Other (no erythema, mild edema, incision c/d/i, no erythema ) Labs Laboratory Tests Test 02/26/19 05:09 Calcium Level 8.0 mg/dL (8.5-10.1) Laboratory Tests Test 02/26/19 05:09 Calcium Level 8.0 mg/dL (8.5-10.1) Assessment/Plan s/p right thyroidectomy ca-8, recheck at 12 FARRAH COOPER MD 02/26/19 1102: SURGICAL PROGRESS NOTE Assessment/Plan pt seen as above await Ca++ JASIEL SINGH APRN Feb 26, 2019 09:10 FARRAH COOPER MD Feb 26, 2019 11:02
[2019-02-26] MEDS ORDERED: DOCU-153 PO (10:15)
[2019-02-26] MEDS ORDERED: CALC300T4 PO (10:15)
[2019-02-26] MEDS ORDERED: HYDR-2761 PO (10:15)
--- NOTE | 2019-02-26 10:17 | DISCH ---
DISCHARGE INSTRUCTIONS Condition on Discharge Condition on Discharge: Stable Activity After Discharge Activity Instructions for Disc: Activity as tolerated Lifting Instructions after Dis: No heavy lifting Exercise Instruction after Dis: Progress as tolerated Driving Instructions after Dis: Do not drive Weight Bearing Status after Di: No restrictions, As tolerated Diet after Discharge Diet after Discharge: Regular Wound Incision Care Wound/Incision Care: May get incision wet, No wound care needed Other wound/incision instructi: leave incision uncovered Contacting the DRGabino after DC Call your doctor for: Concerns you may have Follow-Up Follow up with: FU [address] Worthy, call to schedule [phone] Treatment/Equipment after DC Adaptive Equipment Issued: None JASIEL SINGH APRN Feb 26, 2019 10:16
[2019-02-26 11:00] VITALS: BP 147/87
--- NOTE | 2019-02-26 13:10 | NUR ---
Discharge Note: SARIKA CHANG [address] Discharge instructions and discharge home medications reviewed with Patient and a copy given. All questions have been answered and understanding verbalized. The following instructions and handouts were given: information about thyroidectomy, medications, incisional care, follow up appointments, etc. Discontinued lines and drains: IV line in left forearm removed, catheter tip intact. Patient discharged to home with self care with family member, patient ambulated to discharge vehicle.
--- NOTE | 2019-03-01 09:07 | PATHOLOGY ---
[facility] Accession Number: [id number] . 01 Material submitted: . thyroid gland - RIGHT THYROID NODULE. Modifiers: right . 01 Clinical history: . Right thyroid nodule . 02 Diagnosis: "Right thyroid nodule", removal: - Adenomatoid nodule (1.7 x 1.6 x 0.8 cm). (SKM/db; 02/28/2019) LBQ 02/28/2019 1412 Local . 02 Electronically signed: . Tyler Oviedo MD, Pathologist NPI- [id number] . 01 Gross description: . The specimen is received in formalin, labeled "Tamy Arias, right thyroid nodule". Received is a 1 g segment of disrupted light mai glandular tissue measuring 1.7 x 1.6 x 0.8 cm in greatest dimensions. The surgical margin is inked. Sectioning reveals pale mai, homogenous cut surfaces. The specimen is bisected and entirely submitted in cassette A1. ([facility]; 02/26/2019) QA/[facility] 02/26/2019 0906 Local . 02 Pathologist provided ICD-10: E04.1 . 02 CPT . 228659 Specimen Comment: A courtesy copy of this report has been sent to [phone] Specimen Comment: [phone] Specimen Comment: Report sent to / DR BELL Performed at: 01 [facility] [address], [place] [id number] MD Shaggy Jimenez MD Phone: [phone] Performed at: 02 [facility] [address] [place], [place] [id number] MD Geoff Clark MD Phone: [phone]
--- NOTE | 2019-03-07 13:04 | PDOC3 ---
Discharge Summary Visit Information Date of Admission: Feb 25, 2019 Date of Discharge: Feb 26, 2019 Admitting Diagnosis: right thyroid nodule Final Diagnosis right thyroid nodule Brief Hospital Course Allergies Allergies Coded Allergies Type Severity Reaction Last Updated Verified Sulfa (Sulfonamide Antibiotics) Allergy Severe PRURITIS HIVES 12/27/18 Yes Brief Hospital Course Ms. Arias is a 69 old female who underwent Right hemithyroidectomy. Postoperatively tolerating diet, ambulating, and pain managed. Ready for discharge home Discharge Information Condition at Discharge: Improved Follow Up: Weeks (2) Disposition/Orders: D/C to Home Scheduled Anastrozole (Anastrozole) 1 Mg Tablet, 1 MG PO DAILY for HX BREAST CA, (Reported) Entered as Reported by: BELINDA HUERTA on 12/19/18 115 Last Action: Continued on 02/25/191206 by FARRAH COOPER Calcium Carbonate (Tums X-Str) 300 Mg Tab.chew, 300 MG PO TID for ca low, #30 Ref 0 Prescribed by: Jasiel Odom on 02/26/19 1015 Calcium Carbonate/Vitamin D3 (Calcium 600 + Vit D 800 Tab) 1 Each Tablet, 1 TAB PO DAILY for SUPP for 30 Days, #30 Ref 0 (Reported) Entered as Reported by: BELINDA HUERTA on 12/19/181156 Last Action: Converted on 02/25/191206 by FARRAH COOPER Docusate Sodium (Dok) 100 Mg Capsule, 100 MG PO BID for constipation, #60 Ref 0 Prescribed by: Jasiel Odom on 02/26/19 1015 Levothyroxine Sodium (Levothyroxine Sodium) 25 Mcg Tablet, 1 TAB PO DAILY for hypothryoidism , #30 Ref 0 Prescribed by: Jasiel Odom on 12/28/18 0843 Last Taken: Unknown Dose on 02/24/191999 Last Action: HELD on 02/25/191206 by FARRAH COOPER Lisinopril (Lisinopril) 20 Mg Tablet, 20 MG PO DAILY for FOR HYPERTENSION, #30 Ref 0 (Reported) Entered as Reported by: BELINDA HUERTA on 12/19/18 1141 Last Taken: Unknown Dose on 02/24/191999 Last Action: Continued on 02/25/191206 by FARRAH COOPER Scheduled PRN Hydrocodone Bit/Acetaminophen (Hydrocodone-Apap 5-325 ) 1 Tab Tablet, 1 TAB PO PRN Q4HRS PRN for MILD PAIN 1-3, #30 Ref 0 Prescribed by: Jasiel Odom on 02/26/19 1015 JASIEL ODOM APPRAISAL SPECIALIST Mar 07, 2019 13:04
== END 2019-02-26 13:10 | disposition home or self-care (01) ==
LOC: SURG 08:09 → EDSTATUS 09:45 → 4 NORTH 12:08
PROVIDERS: ADMIT Surgery; ATTEND Surgery
DX: E04.1 Nontoxic single thyroid nodule (principal); I10 Essential (primary) hypertension; E04.9 Nontoxic goiter, unspecified; Z85.3 Personal history of malignant neoplasm of breast; Z85.850 Personal history of malignant neoplasm of thyroid
CPT/HCPCS: 36415; 60210; 82310; 88305; 96372; A7015; G0378; G0379; J0171; J0696; J1100; J1650; J2001; J2250; J2370; J2405; J2704; J3010; J3490; J7120

== ENCOUNTER → 2019-05-10 | Outpatient (CLI) | payer MEDICARE, OTHER ==
[~2019-05-10] MED LIST changes: -BUPIVACAINE-EPI 0.5%-1:200000 MPF 30 ML VIAL. INJ ONE; +CALC300T4 PO; +CONTRAST GIVEN. MC PRN; +DOCU-153 PO; -HYDROmorphone 2 MG/ML VIAL IV PRN; +IOHEXOL 240 MG/ML 50ML VIAL. PO ONE; +IOHEXOL 300 MG/ML 100ML VIAL. IV ONE; -IV RINGERS,LACTATED 1000ML 1,000 ML IV SCH; -LIDOCAINE 1% PF 2 ML VIAL. ID PRN; -MORPHINE SULFATE 2 MG/ML VIAL. IV PRN; -ONDANSETRON PF 4 MG/2 ML VIAL. IV PRN; -PROCHLORPERAZINE 10 MG/2 ML VIAL. IV PRN; -fentaNYL PF VIAL 100 MCG/2 ML VIAL IV PRN
--- NOTE | 2019-05-10 13:04 | RAD ---
CT CHEST ABD PELVIS W/CONTRAST Clinical Indication: Breast cancer COMPARISON: Same-day nuclear medicine bone scan TECHNIQUE: Multiple contiguous axial images were obtained throughout the chest, abdomen, and pelvis with the use of IV contrast. Axial images were reformatted into coronal and sagittal planes. 60 mL Omnipaque 300 was administered. One or more of the following dose reduction techniques were utilized: Automated exposure control (AEC), Adjustment of mA and/or kV according to patient size, Use of iterative reconstruction technique such as ASiR, CT scan done according to ALARA and image gently/image wisely. Findings: The thyroid is atrophic or surgically absent. There is no axillary, mediastinal, or hilar adenopathy. The thoracic aorta diameter is normal. Dilated pulmonary trunk measures 42 mm, which can be seen with pulmonary hypertension. The cardiac size is normal. There is no pericardial effusion. The central airways are patent. There is no suspicious pulmonary nodule. There is no focal consolidation. No pleural effusion is observed. There is no pneumothorax. The liver, gallbladder, spleen, pancreas, and adrenal glands are unremarkable. No hydronephrosis or suspicious renal lesions. 2 mm nonobstructive right renal calculus. There is no significant mesenteric or retroperitoneal adenopathy identified. There is no evidence of free intraperitoneal fluid or pneumoperitoneum. Postsurgical changes of gastric bypass. Sigmoid diverticulosis. The bladder is unremarkable. Hysterectomy. There is no significant pelvic ascites. No significant iliac or inguinal adenopathy is identified. No acute osseous abnormality. No aggressive lytic or blastic osseous lesions. Right mastectomy. Several small well-circumscribed low-attenuation thoracic paravertebral/neural foraminal masses largest at T10-11 on the left measuring 2.2 x 2.2 cm. IMPRESSION: 1. No pulmonary or abdominal mass. No lymphadenopathy. 2. Several small well-circumscribed thoracic paravertebral/neural foraminal masses, largest measuring 2.2 cm. Given the low attenuation, these are suspected to represent prominent perineural cysts. Lateral meningocele or cystic nerve sheath tumor might have a similar appearance. Contrast-enhanced MRI of the thoracic spine would provide better characterization. Electronically signed by: Lei Draper MD (05/10/2019 1:01 PM) [facility]
--- NOTE | 2019-05-10 16:46 | RAD ---
Nuclear medicine whole body bone scan History: Breast cancer. Comparison: CT chests abdomen and pelvis with contrast, same day. Technique: Examination performed after intravenous administration of 26 mCi Technetium 99m MDP. Images of the whole body were obtained in the anterior and posterior projections after routine delay. Findings: There is increased tracer uptake localizing to right lateral ninth rib. On CT there is old fracture. Correlate to history of trauma. Tracer uptake in ribs is otherwise symmetric. Tracer uptake in the spine is relatively homogeneous. Tracer uptake in the pelvis is symmetric. Acromioclavicular, glenohumeral, and sternoclavicular tracer uptake is bilateral and is likely degenerative. Tracer distribution in the soft tissues appears normal. IMPRESSION: No scintigraphic evidence of bone metastasis. Electronically signed by: Gabriel Bearden MD (05/10/2019 4:43 PM) [id number]
== END | disposition home or self-care (01) ==
LOC: NM 08:17
PROVIDERS: ATTEND Internal Medicine Hematology & Oncology
DX: C50.311 Malignant neoplasm of lower-inner quadrant of right female breast (principal); K57.30 Diverticulosis of large intestine without perforation or abscess without bleeding; Z90.710 Acquired absence of both cervix and uterus; Z90.11 Acquired absence of right breast and nipple; Z17.0 Estrogen receptor positive status [ER+]
CPT/HCPCS: 71260; 74177; 78306; A9503; Q9966; Q9967

== ENCOUNTER → 2019-07-22 | Outpatient (CLI) | payer MEDICARE, OTHER ==
[~2019-07-22] MED LIST changes: -CONTRAST GIVEN. MC PRN; -IOHEXOL 240 MG/ML 50ML VIAL. PO ONE; -IOHEXOL 300 MG/ML 100ML VIAL. IV ONE
--- NOTE | 2019-07-22 12:07 | RAD ---
INDICATION: Right arm swelling COMPARISON: None. TECHNIQUE: Grayscale, color and doppler ultrasound images were obtained of the right upper extremity venous vasculature. RIGHT: No thrombus identified in the internal jugular, subclavian, axillary, brachial, basilic, cephalic, radial or ulnar veins. IMPRESSION: 1. No thrombus identified in deep venous system of right upper extremity. Electronically signed by: Vijay Ye MD (07/22/2019 12:04 PM) [id number]
== END | disposition home or self-care (01) ==
LOC: US 11:04
PROVIDERS: ATTEND Internal Medicine Hematology & Oncology
DX: M79.89 Other specified soft tissue disorders (principal); M79.601 Pain in right arm
CPT/HCPCS: 93971